=== PATIENT | female | born 2000 | race Caucasian/White ===

== ENCOUNTER 2019-05-18 15:30 | Emergency (ER) | payer BC ==
[2019-05-18 15:44] VITALS: PULSE 62; RESP 20; TEMP 98.4
[2019-05-18] MEDS ORDERED: SODIUM CHLORIDE 0.9% 1,000 ML IV STA (16:43)
--- NOTE | 2019-05-18 17:03 | ED ---
General Adult HPI - General Chief complaint: Abdominal Pain Stated complaint: Abd pain Time Seen by Provider: 05/18/19 15:46 Source: patient, family Mode of arrival: EMS Limitations: no limitations - History of Present Illness Initial comments: Dictation was produced using [employer] dictation software. please excuse any grammatical, word or spelling errors. Chief Complaint: 18-year-old female presents with 3 weeks of epigastric abdominal pain. History of Present Illness: Patient's 18-year-old female she presents today with worsening abdominal pain. Patient has been having symptoms for the last 3 weeks per she was seen at a clinic where she had labs and x-ray performed. She was full 7 ultrasound performed tomorrow. She has an appointment scheduled with her primary care physician however given her pain she decided come to the emergency department instead. Patient has been having postprandial abdominal pain has b een occurring approximately 30 minutes after eating. States that her symptoms have been getting progressively worse. She was told that she had elevated liver enzymes recently. Patient has any medical problems. She was told that maybe her symptoms are secondary to constipation. Denies any diarrhea. No overt sick contacts. The ROS documented in this emergency department record has been reviewed and confirmed by me. Those systems with pertinent positive or negative responses have been documented in the HPI. All other systems are other negative and/or noncontributory. PHYSICAL EXAM: General Impression: Alert and oriented x3, not in acute distress HEENT: Normocephalic atraumatic, extra-ocular movements intact, pupils equal and reactive to light bilaterally, mucous membranes moist. Cardiovascular: Heart regular rate and rhythm, S1&S2 audible, no murmurs, rubs or gallops Chest: Lungs clear to auscultation bilaterally, no rhonchi, no wheeze, no rales Abdomen: Bowel sounds present, abdomen soft, non-tender, non-distended, no organomegaly, no pain in McBurney's, negative Starks sign Musculoskeletal: Pulses present and equal in all extremities, no peripheral edema Motor: no focal deficits noted Neurological: CN II-XII grossly intact, no focal motor or sensory deficits noted Skin: Intact with no visualized rashes Psych: Normal affect and mood ED course: 18-year-old female presents with epigastric abdominal pain. Vital signs upon arrival are within acceptable limits. Laboratory evaluation obtained. CBC is unremarkable. Metabolic panel is negative. Abdominal labs shows is 238 and ALT of 70. Lipase 226. Total bilirubin 0.3. No elevations in conjugated or unconjugated bilirubin. Urinalysis negative. There is trace ketones. Abdominal ultrasound is obtained showing no acute processes. Patient given GI cocktail. Patient told that she needs to follow-up with elementary school teacher for outpatient management of symptoms. This concerned him in patient's symptoms are secondary to gastritis versus peptic ulcer disease. Patient given prescription for Protonix. Unde rstandable and agreeable with plan. Patient clear for discharge. All questions answered. - Related Data Previous Rx's Medication Instructions Recorded Pantoprazole Sodium [Protonix] 40 mg PO BID 15 Days #30 tablet. 05/18/19 Allergies Allergy/AdvReac Type Severity Reaction Status Date / Time No Known Allergies Allergy Verified 05/18/19 20:15 Review of Systems ROS Statement: Those systems with pertinent positive or pertinent negative responses have been documented in the HPI. ROS Other: All systems not noted in ROS Statement are negative. Past Medical History History of Any Multi-Drug Resistant Organisms: None Reported Past Psychological History: No Psychological Hx Reported Smoking Status: Never smoker Past Alcohol Use History: None Reported Past Drug Use History: None Reported General Exam Limitations: no limitations Course Vital Signs 05/18/19 05/18/19 05/18/19 15:39 15:41 15:44 Temperature 98.4 F Pulse Rate 62 Respiratory 20 Rate Blood Pressure 136/92 123/76 O2 Sat by Pulse 100 99 Oximetry 05/18/19 05/18/19 05/18/19 15:50 16:00 16:10 Temperature Pulse Rate Respiratory Rate Blood Pressure 136/92 136/92 123/79 O2 Sat by Pulse 99 97 100 Oximetry 05/18/19 05/18/19 05/18/19 16:20 16:30 16:40 Temperature Pulse Rate Respiratory Rate Blood Pressure 123/79 123/79 126/82 O2 Sat by Pulse 100 99 99 Oximetry 05/18/19 05/18/19 05/18/19 16:50 17:00 17:10 Temperature Pulse Rate Respiratory 20 Rate Blood Pressure 126/82 126/82 123/76 O2 Sat by Pulse 98 86 L Oximetry 05/18/19 05/18/19 05/18/19 17:20 17:30 18:00 Temperature Pulse Rate Respiratory Rate Blood Pressure 123/76 123/76 O2 Sat by Pulse 100 Oximetry 05/18/19 05/18/19 18:30 19:00 Temperature Pulse Rate Respiratory Rate Blood Pressure 118/67 116/56 O2 Sat by Pulse 100 100 Oximetry Medical Decision Making - Lab Data Result diagrams: 05/18/19 17:45 05/18/19 17:45 Lab Results 05/18/19 05/18/19 05/18/19 Range/Units 17:45 17:45 17:45 WBC 8.3 (4.0-11.0) k/uL RBC 5.56 H (3.80-5.40) m/uL Hgb 16.7 H (11.4-16.0) gm/dL Hct 49.0 H (34.0-46.0) % MCV 88.1 (80.0-100.0) fL MCH 29.9 (25.0-35.0) pg MCHC 34.0 (31.0-37.0) g/dL RDW 12.2 (11.5-15.5) % Plt Count 212 (150-450) k/uL Neutrophils % 52 % Lymphocytes % 24 % Monocytes % 4 % Eosinophils % 18 % Basophils % 1 % Neutrophils # 4.4 (1.3-7.7) k/uL Lymphocytes # 2.0 (1.0-4.8) k/uL Monocytes # 0.3 (0-1.0) k/uL Eosinophils # 1.5 H (0-0.7) k/uL Basophils # 0.1 (0-0.2) k/uL Sodium 142 (137-145) mmol/L Potassium 3.9 (3.5-5.1) mmol/L Chloride 103 (98-107) mmol/L Carbon Dioxide 26 (22-30) mmol/L Anion Gap 13 mmol/L BUN 12 (7-17) mg/dL Creatinine 0.68 (0.52-1.04) mg/dL Est GFR (CKD-EPI)AfAm >90 (>60 ml/min/1.73 sqM) Est GFR (CKD-EPI)NonAf >90 (>60 ml/min/1.73 sqM) Glucose 89 (74-99) mg/dL Calcium 9.8 (8.4-10.2) mg/dL Total Bilirubin 0.5 (0.2-1.3) mg/dL Conjugated Bilirubin 0.0 (0.0-0.3) mg/dL Unconjugated Bilirubin 0.2 (0.0-1.1) mg/dL Delta Bilirubin 0.3 H (0.0-0.2) mg/dL AST 38 H (14-36) U/L ALT 70 H (4-34) U/L Alkaline Phosphatase 88 (38-126) U/L Total Protein 8.1 (6.3-8.2) g/dL Albumin 5.1 H (3.5-5.0) g/dL Lipase 226 (23-300) U/L Urine Color Urine Appearance (Clear) Urine pH (5.0-8.0) Ur Specific [place] (1.001-1.035) Urine Protein (Negative) Urine Glucose (UA) (Negative) Urine Ketones (Negative) Urine Blood (Negative) Urine Nitrite (Negative) Urine Bilirubin (Negative) Urine Urobilinogen (<2.0) mg/dL Ur Leukocyte Esterase (Negative) Urine RBC (0-5) /hpf Urine WBC (0-5) /hpf Ur Squamous Epith Cells (0-4) /hpf Amorphous Sediment (None) /hpf Urine Bacteria (None) /hpf Urine HCG, Qual Not Detected (Not Detectd) 05/18/19 Range/Units 17:45 WBC (4.0-11.0) k/uL RBC (3.80-5.40) m/uL Hgb (11.4-16.0) gm/dL Hct (34.0-46.0) % MCV (80.0-100.0) fL MCH (25.0-35.0) pg MCHC (31.0-37.0) g/dL RDW (11.5-15.5) % Plt Count (150-450) k/uL Neutrophils % % Lymphocytes % % Monocytes % % Eosinophils % % Basophils % % Neutrophils # (1.3-7.7) k/uL Lymphocytes # (1.0-4.8) k/uL Monocytes # (0-1.0) k/uL Eosinophils # (0-0.7) k/uL Basophils # (0-0.2) k/uL Sodium (137-145) mmol/L Potassium (3.5-5.1) mmol/L Chloride (98-107) mmol/L Carbon Dioxide (22-30) mmol/L Anion Gap mmol/L BUN (7-17) mg/dL Creatinine (0.52-1.04) mg/dL Est GFR (CKD-EPI)AfAm (>60 ml/min/1.73 sqM) Est GFR (CKD-EPI)NonAf (>60 ml/min/1.73 sqM) Glucose (74-99) mg/dL Calcium (8.4-10.2) mg/dL Total Bilirubin (0.2-1.3) mg/dL Conjugated Bilirubin (0.0-0.3) mg/dL Unconjugated Bilirubin (0.0-1.1) mg/dL Delta Bilirubin (0.0-0.2) mg/dL AST (14-36) U/L ALT (4-34) U/L Alkaline Phosphatase (38-126) U/L Total Protein (6.3-8.2) g/dL Albumin (3.5-5.0) g/dL Lipase (23-300) U/L Urine Color Yellow Urine Appearance Cloudy H (Clear) Urine pH 8.0 (5.0-8.0) Ur Specific [place] 1.016 (1.001-1.035) Urine Protein Negative (Negative) Urine Glucose (UA) Negative (Negative) Urine Ketones Trace H (Negative) Urine Blood Negative (Negative) Urine Nitrite Negative (Negative) Urine Bilirubin Negative (Negative) Urine Urobilinogen <2.0 (<2.0) mg/dL Ur Leukocyte Esterase Negative (Negative) Urine RBC 1 (0-5) /hpf Urine WBC 1 (0-5) /hpf Ur Squamous Epith Cells 1 (0-4) /hpf Amorphous Sediment Rare H (None) /hpf Urine Bacteria Rare H (None) /hpf Urine HCG, Qual (Not Detectd) Disposition Clinical Impression: Abdominal pain Disposition: HOME SELF-CARE Condition: Good Instructions (If sedation given, give patient instructions): Peptic Ulcer (ED), Gastritis (ED), Abdominal Pain (ED) Prescriptions: Pantoprazole Sodium [Protonix] 40 mg PO BID 15 Days #30 tablet.dr Is patient prescribed a controlled substance at d/c from ED?: No Referrals: Desean Mann MD [STAFF PHYSICIAN] - 1-2 days Time of Disposition: 20:15
[2019-05-18 18:17] LABS: Basophils # (A) 0.1 k/uL (0-0.2); Basophils % (A) 1 %; Eosinophils # (A) 1.5 k/uL (0-0.7); Eosinophils % (A) 18 %; HGB 16.7 gm/dL (11.4-16.0); Lymphocytes % (A) 24 %; MCH 29.9 pg (25.0-35.0); MCV 88.1 fL (80.0-100.0); Mean Platelet Volume 7.5; Monocytes # (A) 0.3 k/uL (0-1.0); Monocytes % (A) 4 %; Neutrophils # (A) 4.4 k/uL (1.3-7.7); Neutrophils % (A) 52 %; Platelet Count 212 k/uL (150-450); RBC 5.56 m/uL (3.80-5.40); RDW 12.2 % (11.5-15.5); WBC 8.3 k/uL (4.0-11.0)
[2019-05-18 18:22] LABS: Amorphous Sediment,Urine Rare /hpf; Appearance,Urine Cloudy (Clear); Bacteria,Urine Rare /hpf; Bilirubin,Urine Negative (Negative); Blood,Urine Negative (Negative); Color,Urine Yellow; Glucose,Urine (UA) Negative (Negative); Ketones,Urine Trace (Negative); Leukocyte Esterase,Urine Negative (Negative); Nitrite,Urine Negative (Negative); Protein,Urine Negative (Negative); RBC,Urine 1 /hpf (0-5); Specific Gravity,Urine 1.016 (1.001-1.035); Squamous Epithelial Cell,Urine 1 /hpf (0-4); Urobilinogen,Urine <2.0 mg/dL (<2.0); WBC,Urine 1 /hpf (0-5)
[2019-05-18 18:28] LABS: ALT 70 U/L (4-34); AST 38 U/L (14-36); African American GFR (CKD) >90 (>60 ml/min/1.73 sqM); Albumin 5.1 g/dL (3.5-5.0); Alkaline Phosphatase 88 U/L (38-126); Anion Gap 13 mmol/L; Bilirubin, Delta 0.3 mg/dL (0.0-0.2); Bilirubin,Unconjugated 0.2 mg/dL (0.0-1.1); Blood Urea Nitrogen 12 mg/dL (7-17); Calcium 9.8 mg/dL (8.4-10.2); Carbon Dioxide 26 mmol/L (22-30); Chloride 103 mmol/L (98-107); Glucose 89 mg/dL (74-99); Non-African American GFR(CKD) >90 (>60 ml/min/1.73 sqM); Potassium 3.9 mmol/L (3.5-5.1); Sodium 142 mmol/L (137-145); Total Bilirubin 0.5 mg/dL (0.2-1.3); Total Protein 8.1 g/dL (6.3-8.2)
--- NOTE | 2019-05-18 19:51 | US ---
EXAMINATION TYPE: US abdomen complete DATE OF EXAM: 05/18/2019 COMPARISON: NONE CLINICAL HISTORY: epigastric pain. Epigastric pain x 2 weeks. EXAM MEASUREMENTS: Liver Length: 12.2 cm Gallbladder Wall: 0.20 cm CBD: 0.41 cm Spleen: 10.3 cm Right Kidney: 10.9 x 4.9 x 3.9 cm Left Kidney: 11.1 x 4.4 x 4.7 cm Patient very gassy, limited exam. Not NPO. Pancreas: Limited due to gas. Liver: Appears to be wnl Gallbladder: Fold seen. Appears to be anechoic. Evidence for sonographic Starks's sign: No CBD: Appears to be wnl. Spleen: Appears to be wnl. Right Kidney: No hydronephrosis or masses seen Left Kidney: No hydronephrosis or masses seen Upper IVC: Appears to be wnl, limited due to gas. Abd Aorta: Proximal aorta measures 1.8 cm in sagittal plane. Appears to be wnl. IMPRESSION: No acute process.
[2019-05-18] MEDS ORDERED: MAG HYDROX/AL HYDROX/SIMETH 30 ML, HYOSCYAMINE ELIXIR 10 ML, LIDOCAINE VISCOUS 2% 10 ML PO STA ×3 (20:03)
[2019-05-18 20:28] VITALS: BP 96/62
== END 2019-05-18 20:30 | disposition home or self-care (01) ==
LOC: EC 15:30
DX: R10.13 Epigastric pain (principal)
CPT/HCPCS: 36415; 76700; 80053; 81001; 81025; 82248; 83690; 85025; 96360; 99284